=== PATIENT | male | born 1995 | race African-American/Black ===

== ENCOUNTER 2017-05-19 01:47 | Emergency (ER) | payer SELFPAY ==
[~2017-05-19] VITALS: Ht 177.8 cm; Wt 117.7 kg
[2017-05-19 01:52] VITALS: TEMP 98.9
[2017-05-19 02:49] LABS: B-TYPE NATRIURETIC PEPTIDE 31 pg/mL (0-125)
[2017-05-19 02:54] LABS: TROPONIN-I < 0.012 ng/mL (0.000-0.034)
[2017-05-19 03:10] VITALS: BP 118/54; PULSE 92
== END 2017-05-19 03:11 | disposition home or self-care (01) ==
LOC: COL.ER 01:47
PROVIDERS: Emergency Medicine
DX: J20.8 Acute bronchitis due to other specified organisms (principal); R07.9 Chest pain, unspecified; B97.89 Other viral agents as the cause of diseases classified elsewhere; F17.210 Nicotine dependence, cigarettes, uncomplicated